=== PATIENT | male | born 1990 | race Caucasian/White ===

== ENCOUNTER 2020-12-26 04:17 | Emergency (ER) | payer SELFPAY ==
[2020-12-26] VITALS (12 sets, daily range): BP systolic 119–138; BP diastolic 73–84; PULSE 69–114; RESP 14–25; TEMP 36.5; O2SAT 92–96
--- NOTE | 2020-12-26 04:15 | RT.EKG_ITS ---
APPROVED REPORT Exam: Resting ECG Reason for Exam: sob Patient Location: E HR:84 bpm ECG Measurements Heart Rate 84 AXIS MI 146 P 25 QRSd 105 QRS 40 QT 391 T 2 QTc 462 Conclusion Sinus rhythm...normal P axis, V-rate 60- 99 Physician: no stemi
[2020-12-26] MEDS: diphenhydrAMINE 50 MG/ML VIAL IVP (04:34)
[2020-12-26] MEDS: FAMOTIDINE 20 MG/50 ML BAG 200 MG IVPB (04:34)
[2020-12-26] MEDS: methylPREDNISolone SUCC 125 MG VIAL IVP (04:35)
--- NOTE | 2020-12-26 04:35 | ED.GENADUL_ITS ---
Discharge Plan Disposition Patient Disposition: HOME Condition: Good Discharge Details Clinical Impression: Rash, Swelling Primary Care Provider: Jamshid Alfaro ED Provider: Eduard Carter Home Meds and New Rx's Prescriptions: New epinephrine [EpiPen 2-Brendan] 0.3 MG/0.3 ML auto-injector 0.3 mg IJ PRN PRNQty: 2 RF: 5 Discharge Instructions Instructions: Urticaria (ED) Additional Instructions: You had a mild allergic reaction. It is uncertain as to what caused this. It may have been something you ate, or your bodies reflex from your heartburn. Regardless, please take 25 mg of Benadryl every 6 hours for the next 2 days, as well as 10 mg of loratadine daily. If you notice any worsening of your symptoms, or any new symptoms such as vomiting, diarrhea, fever, chills, shortness of breath, chest pain, numbness, weakness, or fainting , please return immediately to the emergency department for reevaluation. Please follow up with your primary care provider as soon as possible for reassessment and reevaluation. As always, it was a pleasure participating in your medical care today. Referrals: Jamshid Alfaro. [Primary Care Provider] - Discharge Data Discharge Date/Time-TO BE ENTERED AT DEPARTURE: 12/26/20 06:15 Medical Decision Making This is a 30-year-old male who denies any past medical history who presents today for evaluation of swelling and concern for allergic reaction. Patient states that about 30 minutes prior to arrival he noticed that there was generalized redness and rash over his body, in addition to mild swelling over his face, lips, arms, and anterior abdomen. He admits to sensation of heartburn, as well as some increased work of breathing but denies any difficulty swallowing, maintaining secretions, nausea, vomiting, or diarrhea. He denies any history of allergies. She denies ever having any reaction before. He states that he had normal dinner of chicken this evening, a few beers tonight, and then to ibuprofen before he went to bed. All of which are very common for him. He denies any other in his household that have had similar symptoms. No new detergents or foods. No new medications. No other complaints at this time. Exam demonstrates clear lung sounds, mild edema over the upper extremities, anterior abdomen, and lips. Tongue appears appropriate, no swelling in the posterior oropharynx. No signs of airway compromise. Notable blanching macular rash on the chest back abdomen and arms. Symptoms notably atypical. Patient does not show signs of anaphylaxis at this point no GI symptoms,, no significant respiratory symptoms, no airway involvement at this time. Blood pressure stable. Heart rate stable. We will hold off on epinephrine for the time being. Will give Solu-Medrol, Benadryl and Pepcid, will evaluate for atypical cardiac etiology, give a GI cocktail for his notable reflux, get a proBNP to evaluate for signs of volume overload. 6 AM After prolonged observation. Here on reassessment patient is doing much better. Laboratory work-up has returned unremarkable. No signs of fluid overload. Rash has completely resolved. Mild swelling in his lips is completely resolved. Patient feels much better and would like to go home. Repeat exam shows no clinical evidence of anaphylaxis whatsoever. No evidence of significant allergic reaction at this time. Uncertain as to what the causative agent was, however it may have been a histaminic reaction secondary to his notable heartburn, or potentially an ingested substance. Recommend continued loratadine and Benadryl at home. Gave prescription for EpiPen. Contacted the patient's girlfriend and also discussed the case with her. All parties in agreement with the plan. With the resolution of the patient's symptoms, no evidence of anaphylaxis patient is clinically stable for discharge at this time. I have extensively reviewed the treatment plan and discharge instructions with the patient. I have addressed all patient concerns at this time. The patient was made aware of what symptoms to monitor for that would warrant a return to the emergency department. Discussed the plan with the patient, they demonstrate verbal understanding and agreement with our assessment and plan at this time. The documentation in this chart was dictated using [employer] dictation software. Please excuse any dictation errors. HPI General Date/Time Provider Initiated Documentation: 12/26/20 04:18 . HPI Narrative: This is a 30-year-old male who denies any past medical history who presents today for evaluation of swelling and concern for allergic reaction. Patient states that about 30 minutes prior to arrival he noticed that there was generalized redness and rash over his body, in addition to mild swelling over his face, lips, arms, and anterior abdomen. He admits to sensation of heartburn, as well as some increased work of breathing but denies any difficulty swallowing, maintaining secretions, nausea, vomiting, or diarrhea. He denies any history of allergies. She denies ever having any reaction before. He states that he had normal dinner of chicken this evening, a few beers tonight, and then to ibuprofen before he went to bed. All of which are very common for him. He denies any other in his household that have had similar symptoms. No new detergents or foods. No new medications. No other complaints at this time. Related Data Home Medications Medication Instructions Recorded Confirmed epinephrine [Epipen 2-Brendan] 0.3 mg IJ PRN PRN #2 ea 12/26/20 Previous Rx's Medication Instructions Recorded epinephrine [Epipen 2-Brendan] 0.3 mg IJ PRN PRN #2 ea 12/26/20 Allergies Allergy/AdvReac Type Severity Reaction Status Date / Time No Known Drug Allergies Allergy Unverified 12/26/20 04:24 General Stated Complaint: Allergic DEION: 2 Review of Systems All systems reviewed & are unremarkable except as noted in HPI and below PFSH Family History Mother No problems noted. Father No problems noted. Sister No problems noted. Brother No problems noted. Grandfather No problems noted. Grandfather Heart disease Grandmother Heart disease Grandmother No problems noted. Son No problems noted. Social History Smoking/Tobacco Use Status: Never Smoking risk assessment performed?: Yes Alcohol Intake: current Alcohol Intake frequency: a few times a week Substance use type: does not use Do you feel safe at home: Yes Do you feel safe in your relationship?: Yes Exam Narrative Exam Narrative: 1.Const: Well-nourished, Well-developed, appearing stated age 2.Eyes: PERRL, no conjunctival injection, and symmetrical lids. 3.ENT: Atraumatic external nose and ears. Moist MM. Neck: Symmetric, trachea midline, No thyromegaly. Mild edema of the lips, no significant swelling of the tongue and the posterior oropharynx. No evidence of airway obstruction at this point at all. 4.CVS: +S1/S2, No murmurs or gallops. Peripheral pulses 2+ and equal in all extremities. Brisk capillary refill in all extremities. 5.RESP: Unlabored respiratory effort. Clear to auscultation bilaterally. No wheezes rales or rhonchi 6.GI: Soft, Nontender/Nondistended, No hepatosplenomegaly. No guarding or rebound. 7.MSK: Normocephalic/Atraumatic, Extremities w/o deformity or ttp No cyanosis or clubbing, Normal movement of all extremities 8.Skin: Warm, Dry. No rashes or lesions. Patient demonstrates mild cerebral edema of the upper extremities, as well as over the anterior abdominal wall. Mild blanching macular rash of the chest, back, abdomen, arms and neck. No swelling or rash in the lower extremities. 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 Sensation grossly intact, no focal neurologic deficits. 10.Psych: (AAO) x3. Appropriate mood and affect Course Vital Signs Vital signs: Vital Signs Temperature 36.5 C 12/26/20 04:18 Pulse 108 H 12/26/20 04:18 Respiratory Rate 14 12/26/20 04:18 Blood Pressure 120/73 12/26/20 04:18 Pulse Oximetry 96 12/26/20 04:18 Temperature 36.5 C 12/26/20 04:18 Temperature Source Skin 12/26/20 04:18 Pulse 108 H 12/26/20 04:18 Respiratory Rate 14 12/26/20 04:18 Respiratory Effort Non-Labored 12/26/20 04:24 Respiratory Pattern Normal 12/26/20 04:24 Blood Pressure 120/73 12/26/20 04:18 Blood Pressure Position Sitting 12/26/20 04:18 Pulse Oximetry 96 12/26/20 04:18 Oxygen Delivery Method Room Air 12/26/20 04:18 Oxygen Flow Rate 0 12/26/20 04:18
[2020-12-26 04:40] LABS: Abs Immature Grans 0.01 10^3/uL (0.0-0.06); Absolute Basophil Count 0.04 10^3/uL (0.0-0.2); Absolute Eosinophil Count 0.31 10^3/uL (0.0-0.7); Absolute Lymphocyte Count 4.16 10^3/uL (1.2-3.4); Absolute Monocyte Count 0.98 10^3/uL (0.1-0.8); Absolute Neutrophil Count 3.46 10^3/uL (1.2-6.7); Basophils % 0.4; Eosinophils % 3.5; HCT 49.2 % (40.0-50.0); HGB 16.5 g/dL (13.5-17.5); Immature Grans % 0.1; Lymphocytes % 46.4; MCH 29.9 pg (27.0-33.0); MCHC 33.5 % (32.0-36.0); MCV 89.1 fL (80-95); MPV 9.7 fL (8.0-11.0); Monocytes % 10.9; Neutrophils % 38.7; Nucleated RBC 0 %; Platelet Count 349 10^3/uL (130-400); RBC 5.52 10^6/uL (4.36-5.78); RDW 11.9 % (11.8-14.1); RDW-SD 38.8 fL; WBC 8.96 10^3/uL (4.4-10.8)
[2020-12-26 05:02] LABS: ALT 28 U/L (16-63); AST 16 U/L (15-37); Alkaline Phosphatase 69 U/L (46-116); Anion Gap 13.9 mmol/L (3-11); BUN 18 mg/dL (7-18); Bilirubin, Total 0.3 mg/dL (0.2-1.0); CO2 23.1 mmol/L (21.0-32.0); CREATININE 1.1 mg/dL (0.70-1.30); Calcium 8.9 mg/dL (8.5-10.1); Chloride 103 mmol/L (98-107); Glucose 123 mg/dL (74-106); NT-proBNP 29 pg/mL (<300); Potassium 3.5 mmol/L (3.5-5.1); Sodium 140 mmol/L (136-145); Total Protein 8.2 g/dL (6.4-8.2)
[2020-12-26 05:10] LABS: Troponin I < 0.05 ng/mL (<0.06)
== END 2020-12-26 06:15 | disposition home or self-care (01) ==
PROVIDERS: Emergency Provider Student in an Organized Health Care Education/Training Program; PCP Family Medicine
DX: R21 Rash and other nonspecific skin eruption (principal); R22.0 Localized swelling, mass and lump, head
CPT/HCPCS: 80053; 93005; 96374; 96375; 99284; 81003; 83880; 84484; 85025; 93010; 99283; J1200; J2930